=== PATIENT | male | born 1990 | race Two or more races ===

== ENCOUNTER 2019-09-12 19:23 | Emergency (ER) | payer SELFPAY ==
[~2019-09-12] VITALS: Ht 177.8 cm; Wt 77.1 kg
--- NOTE | 2019-09-12 19:30 | NUR ---
Patient walked into ER with use of left knee support c/o left knee pain after hiking yesterday. Patient came in for worsening pain. Denies trauma to left knee.
--- NOTE | 2019-09-12 20:24 | NUR ---
Crutches dispensed. Pt instructed on proper use of crutches. Patient able to demonstrate correct use of crutches.
[2019-09-12] MEDS ORDERED: HYDROCODONE/APAP 10-325 MG TABLET ONE (20:25)
[2019-09-12 20:27] VITALS: BP 125/78
--- NOTE | 2019-09-12 20:27 | NUR ---
Patient discharged to home in stable condition. Written and verbal after care instructions given. Patient verbalizes understanding of instructions. Stressed follow up or return to ER for worsening s/s.
[2019-09-12] MEDS ORDERED: HYDROCODONE/APAP 10-325 MG TABLET PO ONE (20:30)
== END 2019-09-12 20:28 | disposition home or self-care (01) ==
LOC: ER 19:23
DX: M25.462 Effusion, left knee (principal); M25.562 Pain in left knee; Z98.890 Other specified postprocedural states
CPT/HCPCS: A4663